=== PATIENT | female | born 1980 | race Caucasian/White ===

== ENCOUNTER 2016-11-05 20:28 | Emergency (ER) | payer BC ==
--- NOTE | 2016-11-11 02:33 | ER ---
ADMIT: 11/05/2016 RM/LOC: ER [facility] MR#: [id number] [address] [address] CAMERON MUÑIZ A [address] [place] [address] Emergency Room Report SEX: F AGE: 36 : 1980 DATE: 11/05/2016 TIME: 2027. Please refer to my T-sheet for complete H and P. HISTORY OF PRESENT ILLNESS: Briefly, the patient is a 36-year-old, who comes in with neck pain. It is chronic in nature. She has had long-term problems since July. She thinks she had an injury at work. I do not know the details of this, but she says her neck is hurting bad. She has an appointment with Dr. Goncalves tomorrow. She has history of multiple chronic pain, illnesses. PHYSICAL EXAMINATION: VITAL SIGNS: Blood pressure 131/82, pulse 104, respirations 18, temp 98, sat 99%. GENERAL: No acute distress. HEENT: She has some mild tenderness on the right side of her neck and a little bit midline. SKIN: No rash. LUNGS: Clear. HEART: Regular. ABDOMEN: Soft. NEUROLOGIC: Alert and oriented, nonfocal. EMERGENCY DEPARTMENT COURSE: I placed her in a right arm sling. I gave her Dilaudid 1 mg IM. She had a ride home. I would not fill a script. She can follow up with Dr. Goncalves. ASSESSMENT: Chronic pain. PLAN: Follow up with Dr. Goncalves. Return if worse. Continue care. Try the sling. Jacques Loomis MD/ christine JOB #: [id number] CC: Jacques Loomis MD, Attending Physician Perri Reza APRN, Family Physician
== END 2016-11-05 22:06 | disposition home or self-care (01) ==
LOC: ER 20:28
DX: G89.29 Other chronic pain (principal); M54.2 Cervicalgia; F17.210 Nicotine dependence, cigarettes, uncomplicated; Z88.8 Allergy status to other drugs, medicaments and biological substances; Z79.899 Other long term (current) drug therapy

== ENCOUNTER 2017-01-03 22:10 | Emergency (ER) | payer BC ==
--- NOTE | 2017-01-04 06:00 | ER ---
ADMIT: 01/03/2017 RM/LOC: ER [facility] MR#: [id number] [address] MARY KAYCAMERON Ceferino [address] [place] [address] Emergency Room Report SEX: F AGE: 36 : 1980 DATE: 01/03/2017 The patient is a 36-year-old female, status post recent laparoscopic oophorectomy in [place]. Complains of with possible wound infection. Exam remarkable for contact dermatitis, consistent with latex or adhesive allergy as well as mild inflammation of the wounds with no drainage, umbilicus, and left lower quadrant. Prescribed Keflex 1 g p.o. in department, 500 mg q.i.d. x7 days. Follow up Dr. Reza this week. James Chan MD/ christine JOB #: [id number] CC: James Chan MD, Attending Physician Dashawn Reza MD
== END 2017-01-04 01:25 | disposition home or self-care (01) ==
LOC: ER 22:10
DX: T81.4XXA Infection following a procedure, initial encounter (principal); L25.9 Unspecified contact dermatitis, unspecified cause; F31.9 Bipolar disorder, unspecified; J45.909 Unspecified asthma, uncomplicated; F17.210 Nicotine dependence, cigarettes, uncomplicated; Z88.8 Allergy status to other drugs, medicaments and biological substances; Z79.899 Other long term (current) drug therapy